=== PATIENT | female | born 1980 | race Caucasian/White ===

== ENCOUNTER 2016-12-15 10:26 | Emergency (ER) | payer MEDICAID, OTHER ==
[~2016-12-15 10:26] MED LIST: IMIT25TA; LORT5TAB; RANT150EF
[2016-12-15 10:28] VITALS: BP 131/81; PULSE 96; RESP 18; TEMP 97.6; O2SAT 99
--- NOTE | 2016-12-15 12:21 | RADRPT ---
EXAM DATE/TIME: 12/15/2016 12:04 [place] COMPARISON: No previous studies available for comparison. INDICATIONS : Patient states pulled arm, now pain in wrist radiating into forearm. MEDICAL HISTORY : None. SURGICAL HISTORY : None. ENCOUNTER: Initial ACUITY: 3 days PAIN SCORE: 10/10 LOCATION: Left wrist. FINDINGS: Three view examination of the left wrist demonstrates no soft tissue swelling, dislocation, or fractu re. The carpal bones are in normal alignment. The joint spaces are maintained. Bony mineralization is normal. Small bone island along the base of the first metacarpal. CONCLUSION: Normal examination for a patient of this age. Haroon Dover MD on December 15, 2016 at 12:19 Board Certified Radiologist. This report was verified electronically.
--- NOTE | 2016-12-15 12:27 | PD ---
HPI Chief Complaint: Pain: Acute or Chronic Time Seen by Provider: 11:33 Travel History International Travel<30 days: No Contact w/Intl Traveler<30days: No Traveled to known affect area: No History of Present Illness HPI 36-year-old female that presents to the ED for evaluation of left wrist pain with numbness and tingling. Per patient she's had this for a week and she didn' t think much of it as she that he will get better and stone. Per patient the numbness and tingling is mainly to the third and fourth digits but also effects the fifth digit. Per patient she denies any injury but she does state that she' s been taking care of her grandchildren and doing a lot of heavy lifting with them. She denies any fall or injury but states that 3 days ago her was playing with her and grabbed her by the wrist and caused more pain. She states that the pain is not constant but comes and goes. Feels like a tingling sensation. She denies any fractures or injuries before. No history of neck pain. No history of IV drug abuse. She states that the pain is mainly to the ulnar aspect of the wrist. Sometimes does radiate to the elbow as well as to the fingers. Normal that time. Pain per patient is 5 out of 10. She is not taking anything for this. She has not seen anybody for this. No surgeries to the wrist. PFSH Past Medical History Anxiety: Yes Diminished Hearing: No Musculoskeletal: Yes (DJD) Immunizations Current: Yes Migraines: Yes ?: Not : 3 Para: 1 Past Surgical History Section: Yes Cholecystectomy: Yes Gynecologic Surgery: Yes (C SECTION) Hysterectomy: Yes Tonsillectomy: Yes Social History Alcohol Use: No Tobacco Use: Yes (1 PPD) Substance Use: No Allergies-Medications (Allergen,Severity, Reaction): Coded Allergies: Sulfa (Sulfonamide Antibiotics) (Verified Allergy, Severe, Hives, 12/15/16) penicillin G (Verified Allergy, Mild, 12/15/16) Reported Meds & Prescriptions Reported Meds & Active Scripts Active No Active Prescriptions or Reported Medications Review of Systems Except as stated in HPI: all other systems reviewed are Neg Physical Exam Narrative GENERAL: SKIN: Warm and dry. HEAD: Atraumatic. Normocephalic. EYES: Pupils equal and round. No scleral icterus. No injection or drainage. ENT: No nasal bleeding or discharge. Mucous membranes pink and moist. Tongue is midline. No uvula deviation. NECK: Trachea midline. No JVD. CARDIOVASCULAR: Regular rate and rhythm. No murmurs, S3, S4. RESPIRATORY: No accessory muscle use. Clear to auscultation. Breath sounds equal bilaterally. GASTROINTESTINAL: Abdomen soft, non-tender, nondistended. Hepatic and splenic margins not palpable. MUSCULOSKELETAL: Extremities without clubbing, cyanosis, or edema. No obvious deformities. Phalens test positive on the left hand. Patient has full range of motion of the left wrist and has difficulty completely closing the left hand but able to do so. She has no obvious sensory deficits on exam. Good capillary refill in all fingers. 2+ pulses on the ulnar and radial artery. Full range of motion of the fingers. Full range of motion of the wrist with no scaphoid bone tenderness to palpation. Full range of motion of the elbows and shoulders bilaterally. NEUROLOGICAL: Awake and alert. No obvious cranial nerve deficits. Motor grossly within normal limits. Five out of 5 muscle strength in the arms and legs. Normal speech. PSYCHIATRIC: Appropriate mood and affect; insight and judgment normal. Data Data Last Documented VS Vital Signs Date Time Temp Pulse Resp B/P (MAP) Pulse Ox O2 Delivery O2 Flow Rate FiO2 12/15/16 10:28 97.6 96 18 131/81 (98) 99 Room Air Orders Orders Splint Or Brace Apply/Monitor (12/15/16 11:37) Wrist, Complete ([id number]) (12/15/16 ) [facility] Medical Decision Making Medical Screen Exam Complete: Yes Emergency Medical Condition: Yes Medical Record Reviewed: Yes Interpretation(s) X-ray of the left wrist show no sign of bony injury. Differential Diagnosis Carpal tunnel syndrome versus radiculopathy versus ulnar radiculopathy versus fracture versus arthritis Narrative Course 36-year-old female that presents to the ED for evaluation of left wrist injury. Patient was properly examined and was found to have signs and symptoms very consistent what appears to be possible radiculopathy. Appears to be possible early carpal tunnel versus ulnar nerve radiculopathy. Exam is benign. She does have Phalens test positive. X-ray was done to rule out any sign of bony injury secondary to continuation of symptoms. X-ray was negative for this. Patient was pressure. This time patient will be treated with ibuprofen and steroids. Told to follow closely with PCP. See ED if worsening symptoms. Patient was given Velcro brace. Diagnosis Primary Impression: Wrist pain, acute Qualified Codes: M25.532 - Pain in left wrist Additional Impression: Carpal tunnel syndrome, left Patient Instructions: General Instructions Additional Instructions: Take medications as prescribed. Apply ice or warm compresses to the area as needed. Use brace every day as needed. Follow with hand surgery if this continues to be a problem. See ED worsening symptoms. Med/Other Pt SpecificInfo: Prescription(s) given Scripts No Active Prescriptions or Reported Meds Disposition: 01 DISCHARGE HOME Condition: Stable Kevin Padilla Dec 15, 2016 12:27
[2016-12-15] MEDS ORDERED: IBUP1TAB7 PO (12:28)
[2016-12-15] MEDS ORDERED: PRED20 PO (12:28)
[2016-12-15 12:52] VITALS: BP 122/78
== END 2016-12-15 12:57 | disposition home or self-care (01) ==
LOC: NEPC 10:26
DX: M25.532 Pain in left wrist (principal); G56.02 Carpal tunnel syndrome, left upper limb; F41.9 Anxiety disorder, unspecified; F17.200 Nicotine dependence, unspecified, uncomplicated; Z88.2 Allergy status to sulfonamides; Z88.0 Allergy status to penicillin
CPT/HCPCS: 73110; 99283; L3908